=== PATIENT | female | born 1955 | race Caucasian/White ===

== ENCOUNTER 2022-01-19 08:22 | Emergency (ER) | payer MEDICARE, BC ==
[~2022-01-19] VITALS: Ht 162.6 cm; Wt 68.9 kg
[2022-01-19] MEDS ORDERED: IPRATROPIUM BROMIDE 0.5 MG/2.5 ML NEBU NEB ONE (08:45)
[2022-01-19] MEDS ORDERED: ALBUTEROL SULFATE 2.5 MG/3 ML NEBU NEB ONE ×2 (08:45→09:00)
[2022-01-19] MEDS ORDERED: ALBUTEROL SULFATE 2.5 MG/3 ML NEBU ONE (08:50)
[2022-01-19] MEDS ORDERED: IPRATROPIUM BROMIDE 0.5 MG/2.5 ML NEBU ONE (08:50)
--- NOTE | 2022-01-19 09:05 | NUR ---
Pt is on HHN [place] with no acute distress noted. Covid and influenza specimens collected and sent to lab. Pulse ox:99%, HR:62.
[2022-01-19] MEDS ORDERED: ALBU2.5V13 NEB (10:08)
[2022-01-19] MEDS ORDERED: LEVO750T46 PO (10:08)
--- NOTE | 2022-01-19 10:26 | NUR ---
Pt given d/c instructions, pt verbalized understanding.
== END 2022-01-19 10:24 | disposition home or self-care (01) ==
LOC: ER 08:24
DX: J44.1 Chronic obstructive pulmonary disease with (acute) exacerbation (principal); Z20.822 Contact with and (suspected) exposure to COVID-19; E03.9 Hypothyroidism, unspecified; Z88.1 Allergy status to other antibiotic agents
CPT/HCPCS: 71045; 87400; A4663; J3590